=== PATIENT | female | born 1965 | race African-American/Black ===

== ENCOUNTER → 2023-09-18 12:27 | Outpatient (REF) | payer BC, SELFPAY | LOC: RAD 12:27 | PROVIDERS: ATTENDING PHYSICIAN Nurse Practitioner Family | DX: M25.512 Pain in left shoulder (principal) | CPT/HCPCS: 73030 ==

== ENCOUNTER → 2023-09-27 14:46 | Outpatient (REF) | payer BC, SELFPAY | LOC: RAD 14:46 | PROVIDERS: ATTENDING PHYSICIAN Nurse Practitioner Family | DX: Z78.0 Asymptomatic menopausal state (principal) | CPT/HCPCS: 77080 ==

== ENCOUNTER 2023-12-06 16:57 | Emergency (ER) | payer BC, SELFPAY ==
[2023-12-06] VITALS (7 sets, daily range): BP systolic 140–190; BP diastolic 74–117; BMI 51.8
[2023-12-06 17:37] LABS: COVID-19 Antigen Positive (Negative)
--- NOTE | 2023-12-06 18:25 | ED.GENMED ---
History of Present Illness
General
Chief Complaint: Breathing Problem
Source: patient
Exam Limitations: none
Time Seen by Provider: 12/06/23 17:57
History of Present Illness
History of Present Illness:
This is a 58 year old female that comes in with multiple complaints. States that she started with a cold on Saturday. States that today she has a cough and felt like she couldn't breath. States that she has a fever with chills, chest pain with
coughing, SOB, a Migraine. Denies any abd pain, nausea, vomiting, diarrhea, dizziness, urinary burning.
Past History
Past History
ED Past Medical History: Other (Morbid obesity, Migraines, Constipation)
ED Past Surgical History: (X 2) and Gynecological (D&C, )
Social History
Tobacco: Non-smoker
Alcohol: Occasional
Personal:
Living: with family
Employment: Employed
Family History
Family History: Negative Early CAD
Review of Systems
Review of Systems
All Other Systems: ROS reviewed and negative except as documented in HPI and ROS
Constitutional: Reports fever and chills
EENT: Reports no symptoms
Respiratory: Reports cough and trouble breathing
Cardiac: Reports chest pain
ABD/GI: Reports no symptoms; Denies abdominal pain, nausea, vomiting or diarrhea
: Reports no symptoms; Denies dysuria, frequency or urgency
Musculoskeletal: Reports no symptoms
Skin: Reports no symptoms
Neurological: Reports headache; Denies dizzy
Psychiatric: Reports no symptoms
Phy Exam
General Physical Exam
General Presentation: no apparent distress
General age: appears stated age
General Skin: warm and dry
General Habitus: obese
General Mental: alert
General Hydration: dry mucous membranes
ENT Exam
ENT Exam: TM's normal, pharynx normal and neck supple
Eye Exam
Eye Exam: EOMI
Cardiovascular Exam
Cardiovascular Exam: regular rate/rhythm, no edema and normal peripheral pulses
Pulmonary Exam
Pulmonary Exam: lungs clear, no respiratory distress, no rales, chest non tender, no crackles, no rhonchi, no wheezing and other (Dry cough noted)
Gastrointestinal Exam
Gastrointestinal Exam: normal bowel sounds, non tender, soft, no organomegaly, no pulsatile mass, non distended and other (Obese)
Musculoskeletal Exam
Musculoskeletal Exam: full ROM and no edema
Skin Exam
Skin Exam: normal color, warm/dry, no rash and no petechia
Psychiatric Exam
Psychiatric Exam: normal mood/affect
Scores
Heart Failure Risk
Heart Failure Risk Score: Not Applicable
Course
Orders/Labs/Results
Orders:
Orders
12/06/23 17:05
Electrocardiogram (*1) Urgent
Reason for Study: Shortness of Breath
EKG- Treatment ONCE
12/06/23 17:12
COVID-19 Antigen Urgent
Source: Nasal Swab
12/06/23 18:24
0.9% Sodium Chloride 1000 ml [Nss] 1,000 ml IV BOLUS
Acetaminophen [Tylenol] 1,000 mg PO NOW STA
Ketorolac [Toradol] 30 mg IV NOW STA
12/06/23 18:25
CR Chest - 2 Views Urgent
Comment: COVID
Reason For Exam: SOB, fever
12/06/23 20:07
Complete Blood Count/With Diff Urgent
Comprehensive Metabolic Panel Urgent
12/06/23 20:38
Vital Signs- Treatment ONCE
Frequency: Once
Abnormal Lab Results
12/06/23 12/06/23
17:12 20:07
Absolute Lymphs (auto) 1.0 L 10^3/uL
(1.2-3.4)
Absolute Monos (auto) 1.0 H 10^3/uL
(0.1-0.6)
Lymphocytes % 12.2 L %
(20.5-51.1)
Monocytes % 12.6 H %
(1.7-9.3)
Glucose 122 H mg/dl
(70-99)
AST 103 H U/L
(14-36)
ALT 87 H U/L
(0-35)
SARS-CoV-2 Antigen Positive A
(Negative)
12/06/23 20:07
12/06/23 20:07
Hyperglycemia, AST/ALT elevation (COVID positive)
Vital Signs
Initial and Last Documented VS:
Initial Vital Signs
Temp Pulse Resp BP
101.3 F H 120 18 190/117
12/06/23 17:00 12/06/23 17:00 12/06/23 17:00 12/06/23 17:00
Last Documented Vital Signs
Temp Pulse Resp BP Pulse Ox
101.3 F H 100 32 180/97 96
12/06/23 17:00 12/06/23 21:15 12/06/23 21:15 12/06/23 19:00 12/06/23 21:15
MDM/Problems Addressed
Differential Diagnosis Includes:
COVID, Viral syndrome
MDM/Problems Addressed:
This is a 58 year old female that comes in with c/o SOB. States that she started on Saturday with a cold and today she was SOB with a cough. Staes that she felt like she couldn't get her breath. '
Will check labs. Chest X-ray and COVID, Will give IV fluids. Tylenol for her fever and Toradol for body aches and pains.
Back into see patient. Patient states that she is feeling better. Continue to wait for labs. Will recheck after labs back.
Chronic conditions affecting care:
Obesity
Acute Exacerbation and/or Progression of Chronic Illness:
Obesity
*Radiology
Radiology exam reviewed: radiology read reviewed (Chest- Low lung volumes without focal airspace disease. )
*EKG
Interpreted by ED Provider?: NA
Rate: EKG- N/A
*Knockout Machine Operator Interpretation
Rate: tachycardiac
Heart Rate: 109
Rhythm: sinus tachycardia
*Critical Care Note
Total Time (30-74mins, 75-104mins- exclusive of procedures): Not Applicable
ED Attending Note
-
Portions of this chart may have been created with voice recognition software.� Occasional wrong word or��sound alike� substitutions may have occurred due to the inherent limitations of voice recognition software.
Discharge Plan
Departure
Patient Disposition: Home (Routine Discharge)
Date of Disposition: 12/06/23
Time of Disposition: 21:36
Patient with high blood pressure during this ER visit?: Yes
Condition: Good
Covid-19: Confirmed COVID-19
Discharge Problem:
COVID-19
Instructions: COVID-19 ED, BLOOD PRESSURE
Prescriptions:
No Action
No Current Medications
0
Referrals:
UNKNOWN - PT DOES,NOT KNOW [Family Provider] -
Activity Restrictions/Additional Instructions:
As discussed, please increase your water intake to 8-8oz glasses daily. Continue with Tylenol 1000mg every 6 hours and/or Ibuprofen 600mg every 6 hours with food for fever and body aches. Please rest until you are feeling better. Follow up with the
family doctor for recheck. IF YOU HAVE INCREASED SHORTNESS OF BREATH OR YOU HAVE ANY OTHER CONCERNS PLEASE RETURN TO THE EMEGENCY ROOM.
Interventions
Interventions:
*Risk Screen - Suicide Last Done: 12/06/23 17:00
*General Assessment Last Done: 12/06/23 17:00
*Neglect/Abuse Screening Last Done: 12/06/23 17:00
ED- Fall Risk Assessment Last Done: 12/06/23 18:49
*ED COVID-19 Vaccine History Last Done: 12/06/23 18:49
ED- Cardiac Assessment Last Done: 12/06/23 19:15
ED- Pulmonary Assessment Last Done: 12/06/23 19:15
Discharge Date and Time
Print Language: CHADIAN
[2023-12-06] MEDS: TYLENOL 1000 MG PO (19:10)
[2023-12-06] MEDS: TORADOL 30 MG IV (19:11)
[2023-12-06] MEDS: NSS 1000 IV (19:11)
[2023-12-06 20:17] LABS: % Basophils 0.4 % (0-2); % Eosinophils 1.1 % (0-6); % Immature Granulocytes 0.4 % (0-0.5); % Lymphocytes 12.2 % (20.5-51.1); % Monocytes 12.6 % (1.7-9.3); % Neutrophils 73.3 % (42.2-75.2); Absolute Eosinophils 0.1 10^3/uL (0-0.7); Absolute Neutrophils 5.8 10^3/uL (1.4-6.5); Hematocrit 37.2 % (37.0-47.0); Hemoglobin 13.2 g/dL (12.0-16.0); Mean Corp Hgb Conc. 35.5 g/dL (33.0-37.0); Mean Corpuscular Hgb 30.1 pg (27.0-31.0); Mean Corpuscular Volume 84.7 fL (81.0-99.0); Mean Platelet Volume 10.3 fL (7.4-10.4); Nucleated Red Blood Cells % 0 %; Platelet Count 245 10^3/uL (130-400); Red Blood Cell Count 4.39 10^6/uL (4.20-5.40); Red Cell Dist. Width 13.3 % (11.5-14.5)
[2023-12-06 20:32] LABS: ALT (SGPT) 87 U/L (0-35); AST (SGOT) 103 U/L (14-36); Albumin 4.5 g/dl (3.5-5.0); Alkaline Phosphatase 98 U/L (38-126); Blood Urea Nitrogen 9 mg/dl (7-17); Calcium 9.3 mg/dl (8.4-10.2); Carbon Dioxide 25 mmol/L (22-30); Chloride 103 mmol/L (98-107); Estimated Creatinine Clearance 110 ml/min; Glucose 122 mg/dl (70-99); Potassium 3.7 mmol/L (3.5-5.1); Sodium 136 mmol/L (135-145); Total Bilirubin 0.8 mg/dl (0.2-1.3); Total Protein 7.2 g/dl (6.3-8.2); eGFR > 60.00
== END 2023-12-06 22:07 | disposition home or self-care (01) ==
LOC: EMR 16:57
PROVIDERS: Clinical Nurse Specialist Family Health; Emergency Medicine; EMERGENCY PHYSICIAN Emergency Medicine
DX: U07.1 COVID-19 (principal); R03.0 Elevated blood-pressure reading, without diagnosis of hypertension
CPT/HCPCS: 99285; 96374; 96361; 71046; 80053; 85025; 87811; 93005

== ENCOUNTER → 2024-06-15 14:14 | Outpatient (REF) | payer BC, SELFPAY ==
--- NOTE | 2024-05-29 15:53 | PN.DIAED02 ---
Addendum entered by Carolina Morgan RN 05/29/24 16:13:
pre-depression score: 8
Original Note:
Referral
DSME Class Series Code: [id number]
Referred For: Diabetes Self-Management Training, Medical Nutrition Therapy, Self-Blood Glucose Monitoring, Long-Term Complication Instruction, Accute Complication Instruction, Continuous Glucose Monitoring, Medication management, Insulin
Instruction, Care Coordination, Disease Management
PHI Release Authorization Form Signed: Yes
Demographic
(1) Prediabetes
Status: Acute Code(s): R73.03 - Prediabetes
Patient's primary language-: Welsh
Education: College degree
Occupation: Professional
- Social
Primary Support Person: Self
Primary Care Takers: Self
Living Arrangements: Self & spouse, Family
- Learning Methods
Preferred Method: Hands-on demonstration
Barriers to Learning: None
Glycemic Control
- Blood Glucose Monitoring Assessment
Date: 05/02/24 (FBS: 113 mg/dL)
Blood glucose monitoring at home: Yes
Monitor Brands: Freestyle
Frequency: 2x per day
- Hyperglycemia Assessment
Experiences Hyperglycemia: No
- Hemoglobin A1c
Date: 05/06/24
A1C Percentage (%): 6.4
Medical History of Diabetes
Family Diabetes History: Multiple family members
Previous Diabetes Education: No
Complications/Comorbidity/Specialist: Hyperlipidemia (crestor 2.5 mg)
Measures
- Anthropometrics
Height: 5 ft 1 in
Actual Weight: 270 lb
- Blood Pressure / Pulse
Blood pressure: 136/81
Pulse: 87
- Diabetes Management
Medical Management for Diabetes: Complete physical exam (04/05/24), Dental exam (10/29/21), Dilated eye exam (12/05/23)
Self-Care
- Tobacco Usage
Do you now, or have you ever smoked?: Never smoked
- Alcohol & Drugs Usage
Amount/day: Social Occasions
- Meals & Dining
Meals & Dining: Patient skips meals: Yes, Food Intolerance / Allergy: No, Cultural / Mormonism Dietary Needs: No
Primary Network Development Coordinator: Self
Dining Out Frequency: 1-3x per week
- Physical Activity
Physical Limitation: Yes (shoulder arthritis)
Patient participates in physical Activity: No (current PT)
- Patient-Self Assessment
Diabetes Knowledge: Good
Feelings About Diabetes: Adaptation
General Health: Poor
Importance of Health: Extremely
Stress Level: Medium
Diabetes Interferes With:: Work/school
Barriers to Diabetes Management: Nothing
- Diabetes Identification
Carries Diabetes Identification: No
Care Plan
- Education Needs
Patient Education Needs: Diabetes disease process, Chronic complications, Acute complications, Medication, Monitoring, Physical activity, Psychosocial Adjustment, Nutritional management, Goal setting & problem solving
Recommended Diabetes Training Program based on assessment: Outpatient Diabetes Education Program
- Plan of Care
Plan of Care:
Mary Lou presented for the initial assessment for the May DSME evening program. She was recently diagnosed with pre-diabetes and will be starting Zepbound 2.5 mg today. Since diagnosis she has made dietary changes and decreased sugar and
carbohydrate intake. She requested a glucometer from her PCP and has been monitoring her glucose at home. She is interested in wearing a CGM and we discussed options and recommended she contact her insurance company for eligibility requirements. We
reviewed a monitoring schedule and target glucose parameters. Mary Lou was encouraged to reach out to the office with any concerns.
--- NOTE | 2024-05-29 16:10 | PN.DIAED04 ---
Education Record
- Education Record
Class Attended: Other (initial diabetes assessment)
Instructor: Nurse Practitioner (BOB Ricci), Registered Nurse
Pre-Program Knowledge: Needs review / Assistance
Pre-Test Score (%): 81
Goals
- Goal 1
Being Active: Exercise 30 minutes-5 times per week
Goals To Be Evaluated: Exercise 30 mins-5x/week
- Goal 2
Healthy Eating: Make better food choices, Follow meal plan, Reduce portion sizes
Goals To Be Evaluated: Make better food choices. Follow meal plan. Reduce portion sizes
- Goal 3
Monitoring: Follow monitoring schedule, Monitor health status, Monitor more often
Goals To Be Evaluated: Follow monitoring times. Monitor health status. Monitor more often
--- NOTE | 2024-06-17 15:38 | PN.DIAED14 ---
This is to notify you that your patient with diabetes, PRACHI DE LA PAZ ( 1965), has enrolled in our diabetes self-management classes that are being held at [facility].
These classes will include an introduction to diabetes, diet, medication, exercise and prevention of complications. At the end of our class series, you will receive a report of your patient's participation and progress for your records.
Please contact me at the Diabetes Center, , if there is any particular information regarding your patient that might be helpful to me.
Sincerely,
Conrad ROJAS-DENISE,[facility]
--- NOTE | 2024-06-17 15:39 | PN.DIAED04 ---
Education Record
- Education Record
Class Attended: Class 1
DSME Class Series Code: [id number]
Instructor: Nurse Practitioner (BOB Ricci)
Class Curriculum:
Outpatient Diabetes Education Program:
Class 1 (120 minutes)
Describe the diabetes disease process and treatment options
Diabetes management
Develop personal strategies to promote health and behavior change
Integrate psychosocial adjustment for daily living
Monitor blood glucose and other parameters. Interpret and use the results for self-management decision making
Prevent, detect, and treat acute complications
Class Length (mins): 120
Post-Class 1 Test Score (%): 94
== END ==
LOC: DES 14:14
PROVIDERS: ATTENDING PHYSICIAN Family Medicine
DX: R73.03 Prediabetes (principal)
CPT/HCPCS: 99078

== ENCOUNTER → 2024-06-22 10:20 | Outpatient (REF) | payer BC, SELFPAY ==
--- NOTE | 2024-06-23 15:50 | PN.DIAED04 ---
Education Record
- Education Record
Class Attended: Class 2
DSME Class Series Code: [id number]
Instructor: Registered Dietitian (Misa Lyles, RD, LDN, CDE)
Class Curriculum:
Outpatient Diabetes Education Program:
Class 2 (120 minutes)
Incorporate nutritional management into lifestyle
Understanding nutritional value
Understanding carbohydrate counting
Class Length (mins): 120
== END ==
LOC: DES 10:20
PROVIDERS: ATTENDING PHYSICIAN Nurse Practitioner Family
DX: R73.03 Prediabetes (principal)
CPT/HCPCS: 99078

== ENCOUNTER → 2024-07-06 09:18 | Outpatient (REF) | payer BC, SELFPAY ==
--- NOTE | 2024-07-07 14:58 | PN.DIAED04 ---
Education Record
- Education Record
Class Attended: Class 4
DSME Class Series Code: [id number]
Instructor: Nurse Practitioner (Beatris Maya NP)
Class Curriculum:
Outpatient Diabetes Education Program:
Class 4 (120 minutes)
Develop personal strategies to promote health and behavior change
Incorporate physical activity into lifestyle
Utilize medications safety for maximum therapeutic effectiveness
Understand different medication/insulin mechanism of action
Preparing for travel
Class Length (mins): 120
Post-Class 4 Test Score (%): 93
== END ==
LOC: DES 09:18
PROVIDERS: ATTENDING PHYSICIAN Nurse Practitioner Family
DX: R73.03 Prediabetes (principal)
CPT/HCPCS: 99078

== ENCOUNTER → 2024-07-13 12:28 | Outpatient (REF) | payer BC, SELFPAY ==
--- NOTE | 2024-07-16 07:51 | PN.DE ---
Diabetes Education
- -
07/14/2024 DIABETES EDUCATION
I contacted Mary Lou, discussed elevated BP from class on 07/13/2024. She took BP again at home last night, still 180 systolic, does not recall diastolic. I discussed BP 180/110 as emergent, stroke level and not always symptomatic.
She will check again today at home and call us with the BP values. I encouraged her to see provider AARON, discuss BP. Encouraged her to discuss CPAP for apnea, as untreated can lead to HTN, CPAP machines now are smaller and less invasive.
I talked to office for Billie Benitez, her PCP. Reported BP > 180/110 and member report of BP > 180 and thinking she needs to be symptomatic,
encouraged her to use CPAP. Per rep., she refuses CPAP, they will contact her for an appt.
--- NOTE | 2024-07-16 10:24 | PN.DIAED04 ---
Education Record
- Education Record
Class Attended: Class 5
DSME Class Series Code: [id number]
Instructor: Nurse Practitioner (BOB Ricci)
Class Curriculum:
Outpatient Diabetes Education Program:
Class 5 (120 minutes)
Prevent, detect, and treat acute complications
Prevent, detect, and treat chronic complications through risk reduction
Develop personal strategies to address psychosocial issues and concerns
Development of diabetes self-management support plan
Letter to physician with DSMS plan attached sent
Class Length (mins): 120
Post-Program Knowledge: Demonstrates competency
Post-Test Score (%): 88
Post-Program Assessment
- Post-Program Assessment
Actual Weight: 262 lb
Blood pressure: 189/106 (Dilcia discussed contacting PCP due to high blood pressure)
Post-Program Depression Survey Score: 9
Reviewing Previous Goals?: Yes
Pre-Program Depression Survey Score: 8
- Goals 1 Evaluation
Goals To Be Evaluated: Exercise 30 mins-5x/week
- Goals 2 Evaluation
Goals To Be Evaluated: Make better food choices. Follow meal plan. Reduce portion sizes
- Goals 3 Evaluation
Goals To Be Evaluated: Follow monitoring times. Monitor health status. Monitor more often
== END ==
LOC: DES 12:28
PROVIDERS: ATTENDING PHYSICIAN Nurse Practitioner Family
DX: R73.03 Prediabetes (principal)
CPT/HCPCS: 99078

== ENCOUNTER → 2024-08-10 08:15 | Outpatient (REF) | payer BC, SELFPAY ==
--- NOTE | 2024-08-11 08:30 | PN.DIAED04 ---
Education Record
- Education Record
Class Attended: Class 3
DSME Class Series Code: [id number]
Instructor: Registered Dietitian (Misa Lyles, RD, LDN, CDE)
Class Curriculum:
Outpatient Diabetes Education Program:
Class 3 (120 minutes)
Incorporate nutritional management into lifestyle
Class Length (mins): 120
Post-Class 2 & 3 Test Score (%): 94
== END ==
LOC: DES 08:15
PROVIDERS: ATTENDING PHYSICIAN Nurse Practitioner Family
DX: R73.03 Prediabetes (principal)
CPT/HCPCS: 99078